=== PATIENT | female | born 1995 | race Caucasian/White ===

== ENCOUNTER 2020-11-08 08:43 | Emergency (ER) | payer BC, OTHER ==
[~2020-11-08] VITALS: Ht 154.9 cm; Wt 49.9 kg
--- NOTE | 2020-11-08 09:00 | NUR ---
The patient bib for c/o RLQ pain x 2 days, 7/10 pain scale, +nausea. Denies SOB. Respiration regular and unlabored. Abdomen soft and non-distended. Attached to the monitor. Warm blanket provided for comfort. Will continue to monitor the patient.
--- NOTE | 2020-11-08 09:09 | NUR ---
blood and urine specimens collected and sent to the lab
[2020-11-08 09:18] LABS: BASOPHILS % (AUTO) 0.4 % (0.0-2.0); EOSINOPHILS % (AUTO) 2.1 % (0.0-6.0); HEMATOCRIT 40 % (33-45); HEMOGLOBIN 13.6 g/dL (11.5-14.8); LYMPHOCYTES # (AUTO) 1.7 /CMM (0.8-4.8); LYMPHOCYTES % (AUTO) 24.5 % (20.0-44.0); MEAN CORPUSCULAR HGB CONC 34 g/dl (31.0-36.0); MEAN CORPUSCULAR VOLUME 93 fL (82-100); MONOCYTES # (AUTO) 0.6 /CMM (0.1-1.30); MONOCYTES % (AUTO) 8.2 % (2.0-12.0); NEUTROPHILS # (AUTO) 4.4 /CMM (1.8-8.9); NEUTROPHILS % (AUTO) 64.8 % (43.0-81.0); PLATELET COUNT (AUTO) 215 /CMM (150-450); RED BLOOD CELL COUNT(AUTO) 4.29 MIL/uL (4.0-5.2); WHITE BLOOD COUNT (AUTO) 6.7 K/uL (4.3-11.0)
[2020-11-08 09:27] LABS: CALCIUM, SERUM 8.8 mg/dL (8.5-10.1); CREATININE 0.7 mg/dL (0.6-1.3); POTASSIUM 3.5 mmol/L (3.5-5.1)
[2020-11-08 09:31] LABS: BILIRUBIN,URINE NEGATIVE (NEGATIVE); COLOR,URINE YELLOW (YELLOW); LEUKOCYTE ESTERASE ,URINE MODERATE (NEGATIVE); NITRITE, URINE POSITIVE (NEGATIVE); PROTEIN,URINE NEGATIVE (NEGATIVE); UGLUCOSE NEGATIVE (NEGATIVE); UROBILINOGEN,URINE 0.2 EU/dL (0.2)
[2020-11-08 09:35] LABS: ALBUMIN 4.2 g/dL (3.4-5.0); BILIRUBIN,DIRECT 0.3 mg/dL (0.0-0.2); BILIRUBIN,TOTAL 1.6 mg/dL (0.2-1.0); TOTAL PROTEIN, SERUM 7.2 g/dL (6.4-8.2)
[2020-11-08 09:41] LABS: BACTERIA,URINE Many /HPF (None Seen); RBC,URINE R /HPF (0-2); SQUAMOUS EPITHELIAL CELL,UR Moderate /HPF (None Seen); WBC,URINE R /HPF (0-3)
--- NOTE | 2020-11-08 09:54 | NUR ---
The patient is taken for CT.
--- NOTE | 2020-11-08 09:57 | NUR ---
The patient is back from CT in stable condition.
[2020-11-08] MEDS ORDERED: IBUP-1957 PO (10:42)
[2020-11-08] MEDS ORDERED: AMOX-430 PO (10:42)
[2020-11-08 10:53] VITALS: BP 112/64
--- NOTE | 2020-11-08 10:53 | NUR ---
Patient discharged to home in stable condition. Written and verbal after care instructions given. Patient verbalizes understanding of instruction.
== END 2020-11-08 10:54 | disposition home or self-care (01) ==
LOC: ER 08:50
DX: N39.0 Urinary tract infection, site not specified (principal); E11.9 Type 2 diabetes mellitus without complications; F41.9 Anxiety disorder, unspecified
CPT/HCPCS: 36415; 80048-TC; 80076-TC; 81001; 83690-TC; 84703-TC; 85025-TC; 87086-TC

== ENCOUNTER 2020-12-18 00:33 | Emergency (ER) | payer BC, OTHER ==
[~2020-12-18 00:33] MED LIST: AMOX-430 PO; IBUP-1957 PO
--- NOTE | 2020-12-18 00:37 | NUR ---
CALLED FOR TRIAGE, NO ANSWER.
--- NOTE | 2020-12-18 00:53 | NUR ---
CALLED FOR TRIAGE, NO ANSWER.
--- NOTE | 2020-12-18 01:05 | NUR ---
CALLED FOR TRIAGE, NO ANSWER.
--- NOTE | 2020-12-18 01:19 | NUR ---
CALLED FOR TRIAGE, NO ANSWER.
== END 2020-12-18 01:28 | disposition home or self-care (01) ==
LOC: ER 00:40
DX: Z53.21 Procedure and treatment not carried out due to patient leaving prior to being seen by health care provider (principal)

== ENCOUNTER 2022-01-20 19:16 | Emergency (ER) | payer OTHER ==
[~2022-01-20] VITALS: Ht 154.9 cm; Wt 48.5 kg
[2022-01-20 20:49] VITALS: BP 104/75
--- NOTE | 2022-01-20 20:49 | NUR ---
Patient discharged to home in stable condition. Written and verbal after care instructions given. Patient verbalizes understanding of instruction. Pt ambulatory with a steady gait
== END 2022-01-20 20:32 | disposition home or self-care (01) ==
LOC: ER 19:26
DX: F41.9 Anxiety disorder, unspecified (principal); E11.9 Type 2 diabetes mellitus without complications